=== PATIENT | male | born 1945 | race Caucasian/White ===

== ENCOUNTER → 2021-04-14 15:03 | Outpatient (BNVA) | payer OTHER, SELFPAY | PROVIDERS: Visit Provider Nurse Practitioner | DX: I69.322 Dysarthria following cerebral infarction (principal); I69.320 Aphasia following cerebral infarction; I69.398 Other sequelae of cerebral infarction; R26.89 Other abnormalities of gait and mobility; Z87.891 Personal history of nicotine dependence | CPT/HCPCS: 99204 ==